=== PATIENT | male | born 1965 | race Caucasian/White ===

== ENCOUNTER 2019-08-29 22:02 | Emergency (ER) | payer OTHER ==
[2019-08-29] MEDS ORDERED: Ondansetron 4 MG Tab.DIS PO ONE (22:43)
[2019-08-29] MEDS ORDERED: Ketorolac 60 MG/2 ML SDV IM ONE (22:43)
--- NOTE | 2019-08-29 22:46 | EDM.PDOC ---
ED HPI GENERAL MEDICAL PROBLEM - General Chief Complaint: Flank Pain Stated Complaint: RIGHT SIDE ADB/FLANK PAIN,VOMITING Time Seen by Provider: 08/29/19 22:40 Source of Information: Reports: Patient, RN Notes Reviewed History Limitations: Reports: No Limitations - History of Present Illness INITIAL COMMENTS - FREE TEXT/NARRATIVE: 53-year-old gentleman presents emergency department today complaint of right flank pain, he states it started today has been waxing and waning no history of kidney stones does get nauseated when the pain is intense no fevers Right Flank Pain Score (Numeric/FACES): 8 - Related Data Allergies Allergy/AdvReac Type Severity Reaction Status Date / Time No Known Allergies Allergy Verified 08/29/19 22:32 Home Meds: Home Meds NK [No Known Home Meds] 08/29/19 [History] Past Medical History Respiratory History: Reports: Sleep Apnea - Past Surgical History GI Surgical History: Reports: None Social & Family History - Caffeine Use Caffeine Use: Reports: Coffee - Recreational Drug Use Recreational Drug Use: No ED ROS GENERAL - Review of Systems Review Of Systems: See Below Constitutional: Reports: No Symptoms Respiratory: Reports: No Symptoms Cardiovascular: Reports: No Symptoms GI/Abdominal: Reports: Nausea, Vomiting : Reports: Flank Pain. Denies: Hematuria ED EXAM, GI/ABD - Physical Exam Exam: See Below Exam Limited By: No Limitations General Appearance: Alert, WD/WN, No Apparent Distress Respiratory/Chest: No Respiratory Distress, Lungs Clear, Normal Breath Sounds, No Accessory Muscle Use, Chest Non-Tender Cardiovascular: Regular Rate, Rhythm, No Murmur GI/Abdominal Exam: Soft, Non-Tender Back Exam: Normal Inspection, Full Range of Motion. No: CVA Tenderness (R), CVA Tenderness (L) Course - Vital Signs Last Recorded V/S: Last Vital Signs Temp 97.9 F 08/29/19 22:25 Pulse 59 L 08/29/19 22:25 Resp 18 08/29/19 22:25 BP 150/92 H 08/29/19 22:25 Pulse Ox 8 L 08/29/19 22:25 - Orders/Labs/Meds Labs: Laboratory Tests 08/29/19 Range/Units 22:46 Urine Color [place] A (YELLOW) Urine Appearance Slightly cloudy A (CLEAR) Urine pH 5.5 (5.0-8.0) Ur Specific [place] >= 1.030 (1.008-1.030) Urine Protein 30 H (NEGATIVE) mg/dL Urine Glucose (UA) Negative (NEGATIVE) mg/dL Urine Ketones Negative (NEGATIVE) mg/dL Urine Occult Blood Large H (NEGATIVE) Urine Nitrite Negative (NEGATIVE) Urine Bilirubin Negative (NEGATIVE) Urine Urobilinogen 0.2 (0.2-1.0) EU/dL Ur Leukocyte Esterase Negative (NEGATIVE) Urine RBC Packed H (0-5) Urine WBC 0-5 (0-5) Ur Epithelial Cells Not seen Amorphous Sediment Many Urine Bacteria Not seen Urine Mucus Rare Meds: Medications Discontinued Medications Generic Name Dose Route Start Last Admin Trade Name Freq PRN Reason Stop Dose Admin Ketorolac Tromethamine 60 mg 08/29/19 22:43 08/29/19 22:52 Toradol IM 08/29/19 22:44 60 mg ONETIME ONE Administration Ondansetron HCl 4 mg 08/29/19 22:43 08/29/19 22:52 Zofran Odt PO 08/29/19 22:44 4 mg ONETIME ONE Administration Departure - Departure Time of Disposition: 00:33 Disposition: Home, Self-Care 01 Condition: Fair Clinical Impression: Nephrolithiasis - Discharge Information Instructions: Kidney Stones, [id number] Referrals: PCP,None [Primary Care Provider] - Forms: ED Department Discharge Additional Instructions: Use the ketorolac for baseline pain control, use hydrocodone for breakthrough pain use Zofran as needed for nausea and vomiting symptoms, please followup with your primary care provider in 3-5 days if not better, please call return to the emergency department with worsening of symptoms. Sepsis Event Note - Evaluation Sepsis Screening Result: No Definite Risk - Focused Exam Vital Signs: Vital Signs Temp Pulse Resp BP Pulse Ox 08/29/19 22:25 97.9 F 59 L 18 150/92 H 8 L Date Exam was Performed: 08/30/19 Time Exam was Performed: 00:30 - Assessment/Plan Plan: Assessment Acuity = acute Site and laterality = right-sided nephrolithiasis 4 mm UPJ junction Etiology = unknown Manifestations = nausea and vomiting, flank pain Location of injury = Home Lab values = urinalysis reveals packed red blood cells consistent hematuria CT scan describes stone above Plan He had good improvement with the Toradol provided in the emergency department, prescription written for ketorolac 10 mg 1 tab p.o. 3 times daily PRN total #20 , hydrocodone 5/325 1 tab p.o. 3 times daily PRN total #20 and Zofran ODT 4 mg 1 tab p.o. 3 times daily PRN total #10 and follow-up with his primary care in the next 3 to 5 days if not better This note was dictated using [employer] voice recognition software please call with any questions on syntax or grammar.
--- NOTE | 2019-08-29 23:41 | CRLCT ---
INDICATION: Right flank pain TECHNIQUE: CT Abdomen and pelvis without i.v. contrast. Coronal and sagittal reformats were obtained. COMPARISON: None FINDINGS: Lower chest: Unremarkable. Liver: There are 2 hypodense lesions in the liver dome measuring up to 1 cm. These are incompletely characterized without the use of intravenous contrast. Spleen: Unremarkable. Pancreas: Unremarkable. Gallbladder: Unremarkable. Kidney: There is a 4 mm stone present in the right ureteropelvic junction causing mild right renal pelvicaliectasis. There is 3 mm stones present in the upper pole, midzone and lower pole of the right kidney. A low-density lesion is seen in the upper pole of the left kidney measuring 1.6 cm. An exophytic low-density lesion is seen in the left renal midzone measuring 2.4 cm. These are incompletely characterized without the use of intravenous contrast. Adrenal: Unremarkable. Bowel: Unremarkable. The appendix is normal in appearance and size. Vascular: Unremarkable. Lymph: Unremarkable. Peritoneum: Unremarkable. No pneumoperitoneum is seen. No significant ascites is noted. Pelvis: Unremarkable. Soft tissue: Unremarkable. Bone: Unremarkable for age. IMPRESSION: 1. There is a 4 mm stone present in the right ureteropelvic junction causing mild right renal pelvicaliectasis. Dictated by Constantin Mata MD @ 08/29/2019 11:39:37 PM Please note that all CT scans at this facility use dose modulation, iterative reconstruction, and/or weight-based dosing when appropriate to reduce radiation dose to as low as reasonably achievable. Dictated by: Constantin Mata MD @ 08/29/2019 23:39:43 (Electronically Signed)
== END 2019-08-30 00:43 | disposition home or self-care (01) ==
LOC: JP.ED 22:02
DX: N20.2 Calculus of kidney with calculus of ureter (principal)
CPT/HCPCS: 74176; 81001; 96372; 99284; A9270; J1885